=== PATIENT | male | born 1970 | race Caucasian/White ===

== ENCOUNTER 2022-06-19 12:09 | Emergency (ER) | payer SELFPAY ==
[2022-06-19] MEDS ORDERED: ACETAMINOPHEN 500 MG TAB ONE (12:47)
--- NOTE | 2022-06-19 12:54 | RAD REPORT ---
EXAM DESCRIPTION: CT - Head Brain Wo Cont - 06/19/2022 12:45 pm CLINICAL HISTORY: Headache, new or worsening COMPARISON: No comparisons TECHNIQUE: All CT scans are performed using dose optimization technique as appropriate and may inclu de automated exposure control or mA/KV adjustment according to patient size. FINDINGS: No intracranial hemorrhage, hydrocephalus or extra-axial fluid collection.No areas of brai n edema or evidence of midline shift. Anterior ethmoid air cell thickening. The calvarium is intact. IMPRESSION: No acute intracranial abnormality.
[2022-06-19 12:55] LABS: Absolute Lymphocytes (CBC) 1.5 K/uL (0.7-4.9); Hematocrit 44.6 % (39.6-49.0); Lymphocytes % 13.9 % (15.3-44.8); MCV 87.2 fL (80-100); MPV 8.3 fL (7.6-11.3); RBC Red Blood Cell Count 5.12 M/uL (4.33-5.43)
[2022-06-19 13:21] LABS: Potassium 3.6 mmol/L (3.5-5.1)
[2022-06-19] MEDS ORDERED: HYDRALAZINE HCL 20 MG/ML VIAL ONE (13:49)
--- NOTE | 2022-06-19 14:45 | EDPHYS ---
Physician Documentation [facility] Name: Kam Sultana Age: 51 yrs Sex: Male : 1970 Arrival Date: 06/19/2022 Time: 12:11 Bed 4 Private MD: ED Physician Harper Duffy HPI: 06/19 12:30 This 51 yrs old Male presents to ER via Ambulatory with complaints of High Blood sd2 Pressure. 12:30 51 yo M with no known PMH presents with CC of HTN and SHERWOOD. Pt reports BP at home sd2 initially reading 225 systolic 1 week ago on his 's BP machine and they were concerned the machine might be broken as he has never had BP issues before. They got a new machine and his BP was still reading high. He took one of his 's blood pressure medications today and yesterday with some improvement. He has had some associated SHERWOOD with no new blurred vision, CP or SOB. Endorses associated nausea due to constant head pain located frontally in the center without radiation. No photophobia or phonophobia. Rated 5/10 currently. Has not seen a physician in over 20 years.. Historical: - Allergies: 12:19 Epinephrine; ap3 - Home Meds: 12:19 None [Active]; ap3 - PMHx: 12:19 None; ap3 - Immunization history:: Client reports having NOT received the Covid vaccine. - Social history:: Smoking status: Patient reports the use of cigarette tobacco products, smokes one pack cigarettes per day. ROS: 12:30 Constitutional: Negative for fever, chills, and weight loss, Eyes: Negative for injury, sd2 pain, redness, and discharge, Cardiovascular: Negative for chest pain, palpitations, and edema, Respiratory: Negative for shortness of breath, cough, wheezing. Abdomen/GI: Negative for abdominal pain, nausea, vomiting, diarrhea. MS/Extremity: Negative for injury and deformity, Skin: Negative for injury, rash, and discoloration, Neuro: Positive for headache. Negative for numbness and tingling. Hematologic/Lymphatic: Negative for swollen nodes, abnormal bleeding, and unusual bruising. Exam: 12:30 Constitutional: This is a well developed, well nourished patient who is awake, alert, sd2 and in no acute distress. Head/Face: Normocephalic, atraumatic. Chest/axilla: Normal chest wall appearance and motion. Nontender with no deformity. Cardiovascular: Regular rate and rhythm with a normal S1 and S2. No gallops, murmurs, or rubs. 2+ distal pulses. Respiratory: Lungs have equal breath sounds bilaterally, clear to auscultation and percussion. No rales, rhonchi or wheezes noted. No increased work of breathing, no retractions or nasal flaring. Abdomen/GI: Soft, non-tender, with normal bowel sounds. No guarding or rebound. No evidence of tenderness throughout. Skin: Warm, dry with normal turgor. Normal color with no rashes, no lesions, and no evidence of cellulitis. MS/ Extremity: Pulses equal, no cyanosis. Neurovascular intact. Full, normal range of motion. Ambulatory without difficulty. Neuro: Awake and alert, GCS 15, oriented to person, place, time, and situation. Cranial nerves II-XII grossly intact. Motor strength 5/5 in all extremities. Sensory grossly intact. Cerebellar exam normal. Normal gait. Psych: Awake, alert, with orientation to person, place and time. Behavior, mood, and affect are within normal limits. Vital Signs: 12:15 BP 170 / 115; Pulse 91; Resp 19; Temp 98.2; Pulse Ox 98% ; Weight 86.18 kg; Height 5 ap3 ft. 11 in. (180.34 cm); Pain 5/10; 12:36 BP 157 / 111; Pulse 80; Resp 16; Pulse Ox 100% on R/A; jd3 13:35 BP 177 / 103; Pulse 79; Resp 16; Pulse Ox 99% on R/A; jd3 14:57 BP 156 / 96; Pulse 88; Resp 16; Pulse Ox 99% on R/A; bm7 12:15 Body Mass Index 26.50 (86.18 kg, 180.34 cm) ap3 13:35 provider notified of elevated BP jd3 MDM: 12:21 Patient medically screened. sd2 12:30 Differential diagnosis: hypertensive crisis, Malignant HTN, CVA, intracerebral sd2 hemorrhage, Tension SHERWOOD, migraine SHERWOOD, ICH, dehydration, electrolyte abnormality, MSK, meningitis among others. Data reviewed: vital signs, nurses notes. 14:39 Data reviewed: lab test result(s), radiologic studies. Counseling: I had a detailed sd2 discussion with the patient and/or guardian regarding: the historical points, exam findings, and any diagnostic results supporting the discharge/admit diagnosis, lab results, radiology results, the need for outpatient follow up, to return to the emergency department if symptoms worsen or persist or if there are any questions or concerns that arise at home. Medical screen evaluation completed. [facility] emergency medical condition absent. Medication response: Hydralazine. Response to treatment: the patient's symptoms have markedly improved after treatment. ED course: labs and imaging reviewed. Labs with no signs of end organ damage. BP improved to 161/95 at time of recheck following hydralazine. Unknown how long BP has been high so would want to lower the rest over time. Pt advised of need for close follow up with a PCP to establish care. Has been taking his 's lisinopril 20 mg which improved BP some but not significantly. Will place on combo Lisinopril-HCTZ until patient can follow up with PCP. He will keep a BP log at home as well. Verbalizes understanding of discharge plan and strict return precautions. . 06/19 12:29 Order name: CBC with Diff; Complete Time: 12:58 sd2 06/19 12:29 Order name: BMP; Complete Time: 13:35 sd2 06/19 12:29 Order name: CT Head Brain wo Cont; Complete Time: 12:58 sd2 06/19 12:41 Order name: IV Saline Lock; Complete Time: 12:41 mb7 Administered Medications: 12:56 Drug: Tylenol 1000 mg Route: PO; em6 13:50 Follow up: Response: No adverse reaction jd3 13:45 Drug: hydrALAZINE 10 mg Route: IVP; Site: right antecubital; jd3 14:45 Follow up: Response: No adverse reaction jd3 Disposition Summary: 06/19/22 14:45 Discharge Ordered Location: Home sd2 Problem: new sd2 Symptoms: have improved sd2 Condition: Stable sd2 Diagnosis - Hypertension sd2 Followup: sd2 - With: Tariq Youngblood DO - When: 2 - 3 days - Reason: Recheck today's complaints, Continuance of care, Re-evaluation by your physician Discharge Instructions: - Discharge Summary Sheet sd2 - Hypertension, Adult sd2 - Managing Your Hypertension sd2 Forms: - Medication Reconciliation Form sd2 - Thank You Letter sd2 - Antibiotic Education sd2 - Prescription Opioid Use sd2 Prescriptions: - Lisinopril-Hydrochlorothiazide 20-25 mg Oral Tablet - take 1 tablet by ORAL route once daily; 30 tablet; Refills: 0, Product sd2 Selection Permitted Signatures: Dispatcher [employer] Leonides Patel RN RN jd3 Noris Montes De Oca RN RN ap3 [place] [id number] Harper Duffy MD MD sd2 Mine Stock RN RN em6
--- NOTE | 2022-06-19 14:45 | ER ---
Nurse's Notes [facility] Name: Kam Sultana Age: 51 yrs Sex: Male : 1970 Arrival Date: 06/19/2022 Time: 12:11 Bed 4 Private MD: Diagnosis: Hypertension Presentation: 06/19 12:15 Chief complaint: Patient states: he has been having a headache and high blood pressure ap3 for a few days. patient states he took his blood pressure at home a few days ago and it was 225/??. He states he thought it was a broken machine, so they bought a new one, but the new one showed the same thing so he took one of his wifes blood pressure medications last night. This morning his blood pressure was still high, so he took another one of his wifes medicines. patient states he has never had high blood pressure before. Patient states his headache is focused at the front of his head that is a constant, and it doesn't go away. Patient rates his headache as a 5/10 on the pain scale, and is starting to develop nausea from it. Coronavirus screen: At this time, the client does not indicate any symptoms associated with coronavirus-19. Ebola Screen: No symptoms or risks identified at this time. Initial Sepsis Screen: Does the patient meet any 2 criteria? No. Patient's initial sepsis screen is negative. Does the patient have a suspected source of infection? No. Patient's initial sepsis screen is negative. Risk Assessment: Do you want to hurt yourself or someone else? Patient reports no desire to harm self or others. Onset of symptoms was June 12, 2022. 12:15 Method Of Arrival: Ambulatory ap3 12:15 Acuity: CHUY 2 ap3 Triage Assessment: 12:20 General: Appears uncomfortable, Behavior is calm, cooperative. Pain: Complains of pain ap3 in forehead Pain currently is 5 out of 10 on a pain scale. Neuro: Level of Consciousness is awake, alert, obeys commands, Oriented to person, place, time, situation, Speech is normal, Facial symmetry appears normal. Neuro: Reports headache frontal area. Cardiovascular: Patient's skin is warm and dry. Respiratory: Airway is patent Respiratory effort is even, unlabored. Historical: - Allergies: 12:19 Epinephrine; ap3 - Home Meds: 12:19 None [Active]; ap3 - PMHx: 12:19 None; ap3 - Immunization history:: Client reports having NOT received the Covid vaccine. - Social history:: Smoking status: Patient reports the use of cigarette tobacco products, smokes one pack cigarettes per day. Screenin:20 Abuse screen: Denies threats or abuse. Nutritional screening: No deficits noted. ap3 Tuberculosis screening: No symptoms or risk factors identified. 12:35 Fall Risk Ambulatory Aid- None/Bed Rest/Nurse Assist (0 pts). Gait- Normal/Bed jd3 Rest/Wheelchair (0 pts) Mental Status- Oriented to own ability (0 pts). Total Perkins Fall Scale indicates No Risk (0-24 pts). Assessment: 12:32 General: Appears in no apparent distress. comfortable, Behavior is calm, cooperative, jd3 appropriate for age. Pain: Complains of pain in head Pain currently is 2 out of 10 on a pain scale. Quality of pain is described as aching. Neuro: Silva Agitation-Sedation Scale (RASS): 0 - Alert and Calm Level of Consciousness is awake, alert, obeys commands, Oriented to person, place, time, situation, Cutter Down are equal bilaterally Moves all extremities. Full function Denies weakness blurred vision dizziness. Cardiovascular: Capillary refill < 3 seconds Patient's skin is warm and dry. Respiratory: Airway is patent Respiratory effort is even, unlabored, Respiratory pattern is regular, symmetrical, Denies cough, shortness of breath. GI: No signs and/or symptoms were reported involving the gastrointestinal system. : No signs and/or symptoms were reported regarding the genitourinary system. EENT: No signs and/or symptoms were reported regarding the EENT system. Derm: Skin is intact, Skin is dry, Skin is normal, Skin temperature is warm. Musculoskeletal: Circulation, motion, and sensation intact. Range of motion: intact in all extremities. 13:35 Reassessment: Patient appears in no apparent distress at this time. No changes from jd3 previously documented assessment. Patient and/or family updated on plan of care and expected duration. Pain level reassessed. Patient is alert, oriented x 3, equal unlabored respirations, skin warm/dry/pink. Vital Signs: 12:15 BP 170 / 115; Pulse 91; Resp 19; Temp 98.2; Pulse Ox 98% ; Weight 86.18 kg; Height 5 ap3 ft. 11 in. (180.34 cm); Pain 5/10; 12:36 BP 157 / 111; Pulse 80; Resp 16; Pulse Ox 100% on R/A; jd3 13:35 BP 177 / 103; Pulse 79; Resp 16; Pulse Ox 99% on R/A; jd3 14:57 BP 156 / 96; Pulse 88; Resp 16; Pulse Ox 99% on R/A; bm7 12:15 Body Mass Index 26.50 (86.18 kg, 180.34 cm) ap3 13:35 provider notified of elevated BP jd3 ED Course: 12:11 Patient arrived in ED. mr 12:19 Triage completed. ap3 12:21 Harper Duffy is Attending Physician. sd2 12:21 Arm band placed on right wrist. ap3 12:25 Leonides Diez, JEREMY is Primary Nurse. jd3 12:35 Patient has correct armband on for positive identification. Placed in gown. Bed in low jd3 position. Call light in reach. Side rails up X 1. Pulse ox on. NIBP on. 12:41 Inserted saline lock: 20 gauge in right antecubital area, using aseptic technique. mb7 Blood collected. 12:41 BMP Sent. mb7 12:41 CBC with Diff Sent. mb7 12:47 CT Head Brain wo Cont In Process Unspecified. EDMS 14:09 Assisted to bathroom. bm7 14:44 Tariq Youngblood DO is Referral Physician. sd2 14:57 IV discontinued, intact, bleeding controlled, No redness/swelling at site. Pressure bm7 dressing applied. 15:07 No provider procedures requiring assistance completed. jd3 Administered Medications: 12:56 Drug: Tylenol 1000 mg Route: PO; em6 13:50 Follow up: Response: No adverse reaction jd3 13:45 Drug: hydrALAZINE 10 mg Route: IVP; Site: right antecubital; jd3 14:45 Follow up: Response: No adverse reaction jd3 Medication: 12:35 VIS not applicable for this client. jd3 Outcome: 14:45 Discharge ordered by . sd2 15:07 Discharged to home ambulatory, with family. jd3 15:07 Condition: stable 15:07 Discharge instructions given to patient, Instructed on discharge instructions, follow up and referral plans. medication usage, Demonstrated understanding of instructions, follow-up care, medications, Prescriptions given X 1. 15:09 Patient left the ED. jd3 Signatures: Dispatcher [employer] [facility] DavidRadha Chary, Leonides RN RN jd3 Noris Montes De Oca RN RN ap3 Yaa Caro RN RN bm7 [place] [id number] Harper Duffy MD MD sd2 Mine Stock RN RN em6
[2022-06-19 15:17] VITALS: TEMP 98.2
[2022-06-19 15:21] VITALS: O2SAT 99
[2022-06-19 15:24] VITALS: BP 156/96
== END 2022-06-19 15:09 | disposition home or self-care (01) ==
LOC: ER 12:09
DX: I10 Essential (primary) hypertension (principal); F17.210 Nicotine dependence, cigarettes, uncomplicated; Z88.8 Allergy status to other drugs, medicaments and biological substances
CPT/HCPCS: 36415; 70450; 80048; 85025; 96374; 99284; J0360

== ENCOUNTER 2022-12-12 10:42 | Inpatient (IN) | payer SELFPAY ==
[2022-12-12 11:14] LABS: Absolute Lymphocytes (CBC) 1.6 K/uL (0.7-4.9); Hematocrit 41.8 % (39.6-49.0); Lymphocytes % 16.3 % (15.3-44.8); MCV 87.3 fL (80-100); MPV 8.3 fL (7.6-11.3); RBC Red Blood Cell Count 4.79 M/uL (4.33-5.43)
--- NOTE | 2022-12-12 11:38 | RAD REPORT ---
EXAM DESCRIPTION: US - Abdomen Exam Limited - 12/12/2022 11:21 am CLINICAL HISTORY: RUQ pain COMPARISON: No comparisons FINDINGS: The gallbladder demonstrates no gallstones. No pericholecystic fluid or gallbladder wall t hickening. The common bile duct is normal measuring 4 mm. Multiple gallbladder polyps noted. The larg est measures 11 millimeters. No definite vascular flow within the polyp. The liver demonstrates no findings of intrahepatic biliary dilatation. IMPRESSION: Negative for cholelithiasis or acute cholecystitis. No biliary ductal dilatation . Gallbladder polyp measuring 11 millimeters. Prophylactic cholecystectomy could be considered given sm all risk of malignancy. Recommend surgical referral.
[2022-12-12 11:56] LABS: Albumin 3.8 g/dL (3.4-5.0); Bilirubin Total 0.9 mg/dL (0.2-1.0); Potassium 3.2 mmol/L (3.5-5.1); Protein, Total 7.4 g/dL (6.4-8.2)
[2022-12-12 11:59] LABS: Troponin High Sensitivity 3671.2 pg/mL (<58.9)
--- NOTE | 2022-12-12 12:18 | RAD REPORT ---
EXAM DESCRIPTION: RAD - Chest Single View - 12/12/2022 12:09 pm CLINICAL HISTORY: CHEST PAIN COMPARISON: No comparisons FINDINGS: Lines: None. Lungs: No evidence of edema or pneumonia. Pleural: No significant pleural effusions or pneumothorax. Cardiac: The heart size is within normal limits. Mediastinum: Within normal limits. Bones: No acute fractures. Other: None IMPRESSION: No acute cardiopulmonary disease.
--- NOTE | 2022-12-12 12:25 | ER ---
Nurse's Notes [facility] Name: Kam Sultana Age: 52 yrs Sex: Male : 1970 Arrival Date: 12/12/2022 Time: 10:44 Bed 17 Private MD: Diagnosis: Subsequent non-ST elevation (NSTEMI) myocardial infarction;Polyps of Gallbladder Presentation: 12/12 10:58 Chief complaint: Patient states: 6 days ago I started having chest pain and jaw pain jh5 and it comes and goes and I feel like it's worse after I eat but im not sure. Coronavirus screen: Vaccine status: Patient reports receiving the 2nd dose of the covid vaccine. Client denies travel out of the [place] in the last 14 days. Ebola Screen: Patient negative for fever greater than or equal to 101.5 degrees Fahrenheit, and additional compatible Ebola Virus Disease symptoms Patient denies exposure to infectious person. Patient denies travel to an Ebola-affected area in the 21 days before illness onset. Initial Sepsis Screen: Does the patient meet any 2 criteria? No. Patient's initial sepsis screen is negative. Does the patient have a suspected source of infection? No. Patient's initial sepsis screen is negative. Risk Assessment: Do you want to hurt yourself or someone else? Patient reports no desire to harm self or others. Onset of symptoms was November 2022. 10:58 Method Of Arrival: Ambulatory [facility] 10:58 Acuity: CHUY 3 jh5 Triage Assessment: 10:59 General: Appears in no apparent distress. uncomfortable, slender, well groomed, well jh5 developed, Behavior is calm, cooperative, appropriate for age, crying. Pain: Complains of pain in chest. Historical: - Allergies: 10:59 Epinephrine; jh5 - Immunization history:: Adult Immunizations up to date. - Social history:: Smoking status: Patient reports the use of cigarette tobacco products, smokes one pack cigarettes per day. - Family history:: not pertinent. Screenin:10 [facility] ED Fall Risk Assessment (Adult) History of falling in the last 3 months, db including since admission No falls in past 3 months (0 pts) Confusion or Disorientation No (0 pts) Intoxicated or Sedated No (0 pts) Impaired Gait No (0 pts) Mobility Assist Device Used No (0 pt) Altered Elimination No (0 pt) Score/Fall Risk Level 0 - 2 = Low Risk Oriented to surroundings, Maintained a safe environment. Abuse screen: Denies threats or abuse. Denies injuries from another. Nutritional screening: No deficits noted. Tuberculosis screening: No symptoms or risk factors identified. Assessment: 10:55 Reassessment: Patient appears in no apparent distress at this time. Patient and/or db family updated on plan of care and expected duration. Pain level reassessed. Patient is alert, oriented x 3, equal unlabored respirations, skin warm/dry/pink. CHEST PAIN X 6 DAYS. DENIES CHEST PAIN AT THIS MOMENT. PATIENT TEARFUL. APPEARS ANXIOUS BUT DENIES ANXIETY. PROVIDER AT BEDSIDE DURING INITIAL ASSESSMENT. General: Appears in no apparent distress. comfortable, Behavior is cooperative, anxious. Pain: Complains of pain in chest Pain radiates to JAW Pain began 6 DAYS. Neuro: Level of Consciousness is awake, alert, obeys commands, Oriented to person, place, time, situation, Moves all extremities. Speech is normal. Cardiovascular: Reports chest pain, Capillary refill < 3 seconds. Respiratory: No deficits noted. Airway is patent Respiratory effort is even, unlabored, Respiratory pattern is regular, symmetrical. GI: No deficits noted. No signs and/or symptoms were reported involving the gastrointestinal system. Abdomen is flat, non-distended. : No deficits noted. No signs and/or symptoms were reported regarding the genitourinary system. 11:12 Reassessment: PATIENT TO ULTRASOUND. 11:30 Reassessment: Patient appears in no apparent distress at this time. Patient and/or db family updated on plan of care and expected duration. Pain level reassessed. Patient is alert, oriented x 3, equal unlabored respirations, skin warm/dry/pink. PATIENT AMBULATORY TO RESTROOM WITH STEADY GATE IN NAD. DENIES CHEST PAIN WITH WALKING. 13:03 Reassessment: Patient and/or family updated on plan of care and expected duration. Pain db level reassessed. Patient is alert, oriented x 3, equal unlabored respirations, skin warm/dry/pink. CASTING AND LOCKER ROOM SERVICER AT PATIENT BEDSIDE. 13:14 Reassessment: Patient appears in no apparent distress at this time. BAND SHOVER RN AT db BEDSIDE. SBAR PROVIDED. Vital Signs: 10:58 BP 133 / 91; Pulse 99; Resp 18; Temp 98.6; Pulse Ox 100% ; Weight 88.45 kg; Height 5 jh5 ft. 11 in. (180.34 cm); Pain 0/10; 11:00 BP 110 / 80; Pulse 80; Resp 18; Pulse Ox 100% on R/A; db 11:12 Pain 0/10; db 12:00 BP 119 / 85; Pulse 76; Resp 18; Pulse Ox 99% on R/A; db 13:00 BP 133 / 95; Pulse 85; Resp 16; Pulse Ox 100% on R/A; db 10:58 Body Mass Index 27.20 (88.45 kg, 180.34 cm) 5 Vitals: 11:12 Cardiac Rhythm Assessment Regular Sinus rhythm. db Nahed Coma Score: 11:12 Eye Response: spontaneous(4). Verbal Response: oriented(5). Motor Response: obeys db commands(6). Total: 15. ED Course: 10:44 Patient arrived in ED. mr 10:44 Frankie Deleon MD is Attending Physician. rt 10:59 Triage completed. jh5 10:59 Arm band placed on right wrist. jh5 11:03 Patient maintains SpO2 saturation greater than 95% on room air. db 11:08 Andra Arrington, RN is Primary Nurse. db 11:10 No provider procedures requiring assistance completed. Inserted saline lock: 20 gauge db in right antecubital area, using aseptic technique. Blood collected. 11:13 Patient has correct armband on for positive identification. Bed in low position. Call db light in reach. Side rails up X 1. Client placed on continuous cardiac and pulse oximetry monitoring. NIBP monitoring applied. Warm blanket given. 11:21 Abdomen Exam Limited In Process Unspecified. EDMS 11:59 Notified ED physician of a critical lab result(s). Troponin 3671.2. aa5 12:11 Chest Single View XRAY In Process Unspecified. EDMS 12:24 Tony Galloway MD is Hospitalizing Provider. rt 12:55 COVID swab sent to lab. db 13:14 Report given to SBAR GIVEN TO BAND SHOVER RN. db 13:15 Patient admitted, IV remains in place. db 13:41 Primary Nurse role handed off by Andra Arrington, JEREMY bd Administered Medications: 12:58 Drug: Aspirin 325 mg Route: PO; db 13:17 Follow up: Response: No adverse reaction db Medication: 11:31 VIS not applicable for this client. db Outcome: 12:25 Decision to Hospitalize by Provider. rt 13:14 Admitted to Wellness Specialist accompanied by nurse, accompanied by tech. db 13:14 Condition: stable 13:14 Instructed on the need for admit. 13:19 Patient left the ED. db 13:41 Patient left the ED. bd Signatures: Dispatcher [employer] EDMS Gretchen Burdick bd David Radha Mayberry, Cristiane, RN RN aa5 Vera Ray, RN RN jh5 Andra Arrington, RN RN Frankie Ya MD MD rt Corrections: (The following items were deleted from the chart) 13:15 13:00 BP 133 / 95; Pulse 85bpm; Resp 06bpm; Pulse Ox 100% RA; db db
--- NOTE | 2022-12-12 12:25 | EDPHYS ---
Physician Documentation [facility] Name: Kam Sultana Age: 52 yrs Sex: Male : 1970 Arrival Date: 12/12/2022 Time: 10:44 Bed 17 Private MD: ED Physician Frankie Deleon HPI: 12/12 10:59 This 52 yrs old Male presents to ER via Unassigned with complaints of Chest Pain. rt 10:59 The patient or guardian reports chest pain that is located primarily in the substernal rt area, epigastric area. Onset: 1 week(s) ago. Duration: The patient or guardian reports multiple episodes, that are intermittent. Modifying factors: The symptoms are alleviated by nothing. the symptoms are aggravated by eating. Severity of pain: At its worst the pain was moderate. Historical: - Allergies: 10:59 Epinephrine; jh5 - Immunization history:: Adult Immunizations up to date. - Social history:: Smoking status: Patient reports the use of cigarette tobacco products, smokes one pack cigarettes per day. - Family history:: not pertinent. ROS: 10:59 Constitutional: Negative for fever, chills, and weight loss, Eyes: Negative for injury, rt pain, redness, and discharge, ENT: Negative for injury, pain, and discharge, Neck: Negative for injury, pain, and swelling, Respiratory: Negative for shortness of breath, cough, wheezing, and pleuritic chest pain, MS/Extremity: Negative for injury and deformity, Skin: Negative for injury, rash, and discoloration, Neuro: Negative for headache, weakness, numbness, tingling, and seizure, Psych: Negative for depression, anxiety, suicide ideation, homicidal ideation, and hallucinations. 10:59 Cardiovascular: Positive for chest pain, Negative for edema. 10:59 Abdomen/GI: Positive for abdominal pain, Negative for nausea and vomiting. Exam: 10:59 Constitutional: This is a well developed, well nourished patient who is awake, alert, rt and in no acute distress. Head/Face: Normocephalic, atraumatic. Eyes: Pupils equal round and reactive to light, extra-ocular motions intact. Lids and lashes normal. Conjunctiva and sclera are non-icteric and not injected. Cornea within normal limits. Periorbital areas with no swelling, redness, or edema. ENT: Nares patent. No nasal discharge, no septal abnormalities noted. Tympanic membranes are normal and external auditory canals are clear. Oropharynx with no redness, swelling, or masses, exudates, or evidence of obstruction, uvula midline. Mucous membranes moist. Chest/axilla: Normal chest wall appearance and motion. Nontender with no deformity. No lesions are appreciated. Cardiovascular: Regular rate and rhythm with a normal S1 and S2. No gallops, murmurs, or rubs. Normal PMI, no JVD. No pulse deficits. Respiratory: Lungs have equal breath sounds bilaterally, clear to auscultation and percussion. No rales, rhonchi or wheezes noted. No increased work of breathing, no retractions or nasal flaring. Abdomen/GI: Soft, non-tender, with normal bowel sounds. No distension or tympany. No guarding or rebound. No evidence of tenderness throughout. Back: No spinal tenderness. No costovertebral tenderness. Full range of motion. Skin: Warm, dry with normal turgor. Normal color with no rashes, no lesions, and no evidence of cellulitis. MS/ Extremity: Pulses equal, no cyanosis. Neurovascular intact. Full, normal range of motion. Neuro: Awake and alert, GCS 15, oriented to person, place, time, and situation. Cranial nerves II-XII grossly intact. Motor strength 5/5 in all extremities. Sensory grossly intact. Cerebellar exam normal. Normal gait. Psych: Awake, alert, with orientation to person, place and time. Behavior, mood, and affect are within normal limits. 10:59 ECG was reviewed by the Attending Physician. Vital Signs: 10:58 BP 133 / 91; Pulse 99; Resp 18; Temp 98.6; Pulse Ox 100% ; Weight 88.45 kg; Height 5 jh5 ft. 11 in. (180.34 cm); Pain 0/10; 11:00 BP 110 / 80; Pulse 80; Resp 18; Pulse Ox 100% on R/A; db 11:12 Pain 0/10; db 12:00 BP 119 / 85; Pulse 76; Resp 18; Pulse Ox 99% on R/A; db 13:00 BP 133 / 95; Pulse 85; Resp 16; Pulse Ox 100% on R/A; db 10:58 Body Mass Index 27.20 (88.45 kg, 180.34 cm) jh5 [place] Coma Score: 11:12 Eye Response: spontaneous(4). Verbal Response: oriented(5). Motor Response: obeys db commands(6). Total: 15. MDM: 10:47 Patient medically screened. rt 13:12 Differential diagnosis: acute myocardial infarction, acute pericarditis, cholecystitis, rt Cholelithiasis pneumonia, pneumothorax, pulmonary embolus. HEART Score: History: Highly Suspicious (2), ECG: Non specific repolarization disturbance / LBTB / PM (1), Age: > 45 and < 65 years (1), Risk Factors: 1 or 2 risk factors (1), [Hypertension] [Active Smoker] Troponin: > or = 3 x Normal Limit (2), Total Score = 6. Data reviewed: vital signs, nurses notes, lab test result(s), EKG, radiologic studies. Consideration of Admission/Observation Patient was admitted/placed on observation. Management of patient was discussed with the following: Hospitalist: Will admit. Security And Compliance Analyst: Dr. Gill, kian cath pt. I considered the following discharge prescriptions or medication management in the emergency department Medications were administered in the Emergency Department. See MAR. Counseling: I had a detailed discussion with the patient and/or guardian regarding: radiology results, Informed of gallbladder polyps and instructed to follow up with surgeon per dasha leal. Response to treatment: the patient is now symptom free. 12/12 10:55 Order name: CBC with Diff; Complete Time: 12:03 rt 12/12 10:55 Order name: CMP; Complete Time: 12:03 rt 12/12 10:55 Order name: Lipase; Complete Time: 12:03 rt 12/12 10:55 Order name: Troponin High Sensitivity; Complete Time: 12:03 rt 12/12 10:55 Order name: Chest Single View XRAY; Complete Time: 12:24 rt 12/12 12:45 Order name: SARS RAPID rt 12/12 10:55 Order name: EKG; Complete Time: 10:55 rt 12/12 10:55 Order name: EKG - Nurse/Tech; Complete Time: 11:08 rt 12/12 11:09 Order name: Abdomen Exam Limited; Complete Time: 12:03 EDMS 12/12 12:22 Order name: NPO; Complete Time: 12:49 rt EC:59 Rate is 97 beats/min. Rhythm is regular, Normal Sinus Rhythm with No ectopy. IL rt interval is normal. QRS interval is normal. QT interval is normal. No Q waves. Clinical impression: NSR w/ Non-specific ST/T Changes. Interpreted by me. Administered Medications: 12:58 Drug: Aspirin 325 mg Route: PO; db 13:17 Follow up: Response: No adverse reaction db Disposition: 13:12 Critical Care:. rt Disposition Summary: 12/12/22 12:25 Hospitalization Ordered Hospitalization Status: Inpatient Admission rt Provider: Tony Galloway rt Location: Telemetry/MedSurg (Inpatient) rt Condition: Fair rt Problem: new rt Symptoms: have improved rt Bed/Room Type: Standard rt Room Assignment: 231(12/12/22 13:41) bd Diagnosis - Subsequent non-ST elevation (NSTEMI) myocardial infarction rt - Polyps of Gallbladder rt Forms: - Medication Reconciliation Form rt - SBAR form rt Critical care time excluding procedures: 13:12 Critical care time: Bedside Care: 30 minutes, Consultation: 10 minutes. Total time: 40 rt minutes Signatures: Dispatcher [employer] EDMS Gretchen Burdick Jessica, RN RN jh5 Andra Arrington RN RN db Frankie Deleon MD MD rt Corrections: (The following items were deleted from the chart) 11:09 10:55 OB Limited+US.RAD.BRZ ordered. EDRI EDMS 13:41 12:25 rt bd
[2022-12-12] MEDS ORDERED: ASPIRIN 325 MG TAB ONE (12:57)
[2022-12-12] MEDS ORDERED: NA CHLORIDE 0.9% 500 ML ONE (13:04)
[2022-12-12] MEDS ORDERED: HYDROCODONE/APAP 5/325 MG TAB PO PRN (13:20)
[2022-12-12] MEDS ORDERED: ACETAMINOPHEN 325 MG TABLET PO PRN (13:20)
[2022-12-12] MEDS ORDERED: ONDANSETRON 4 MG/2 ML VIAL IV PRN (13:24)
[2022-12-12 13:26] LABS: SARS-CoV-2 Antigen Rapid Res Negative (Negative)
[2022-12-12] MEDS ORDERED: LIDOCAINE 1% 20 ML MDV ONE (13:52)
[2022-12-12] MEDS ORDERED: HEPA 1000U/500MLS 2,000 UNIT/1,000 ML BAG IV ONE (13:52)
[2022-12-12] MEDS ORDERED: VERAPAMIL HCL 10 MG/4 ML VIAL IV ONE (13:53)
[2022-12-12] MEDS ORDERED: FENTANYL CITR 100 MCG/2 ML ONE (13:53)
[2022-12-12] MEDS ORDERED: HEPARIN 5000 UNIT/ML 1 ML VIAL ONE (13:53)
[2022-12-12] MEDS ORDERED: MIDAZOLAM HCL 2 MG/2 ML INJ ONE (13:53)
[2022-12-12] MEDS ORDERED: NITROGLYCERIN 100 MCG/ML SYR (for cath lab use only) IV ONE (13:54)
[2022-12-12] MEDS ORDERED: ATROPINE SULF 1 MG/10 ML SYR IV ONE (13:54)
[2022-12-12] MEDS ORDERED: HEPARIN 10,000 UNIT/10 ML VIAL IV ONE (13:54)
[2022-12-12] MEDS ORDERED: HEPARIN/D5W 25,000 UNIT/500 ML BAG IV PRN (14:00)
[2022-12-12 14:13] VITALS: BMI 27.1
--- NOTE | 2022-12-12 14:15 | P.HP ---
Certification for Inpatient Patient admitted to: Inpatient With expected LOS: >2 Midnights Patient will require the following post-hospital care: None Practitioner: I am a practitioner with admitting privileges, knowledge of patient current condition, hospital course, and medical plan of care. Services: Services provided to patient in accordance with Admission requirements found in Title 42 Section 412.3 of the Code of Federal Regulations <Donis Gomez - Last Filed: 12/13/22 03:09> Patient History Date of Service: 12/12/22 Reason for admission: Chest pain History of Present Illness: Patient is a 52-year-old male with a past medical history significant for nicotine dependence, hypertension who presents with complaint of substernal chest pain and epigastric area that has been ongoing intermittently for the past 1 week. Patient reports that chest pain normally last for about 40 minutes whenever he experiences it. He indicated that whenever he eats, 30 minutes later he starts to experience chest pain. Patient rated pain as 10/10 in severity and described pain as squeezing in quality. Patient indicated that chest pain radiates to his left jaw. Patient denies any other signs or symptoms. Symptoms are aggravated or relieved by nothing. Patient decided to present to the hospital for medical evaluation. - Past Medical/Surgical History -: HTN -: Nicotine dependence Past Surgical History: Reviewed- Non-Contributory - Family History Family History: Reviewed- Non-Contributory - Social History Smoking Status: Current every day smoker Counseled patient to stop smoking for: less than 10 minutes Smoking therapy provided: Yes Patient receptive to therapy: Yes Alcohol use: No CD- Drugs: No Caffeine use: Yes Place of Residence: Home <Donis Gomez - Last Filed: 12/13/22 03:09> Date of Service: 12/13/22 <Tony Galloway - Last Filed: 12/13/22 06:36> Allergies epinephrine Adverse Reaction (Intermediate, Verified 12/12/22 14:12) Nausea/Vomiting Home Medications: Losartan/Hydrochlorothiazide [Losartan-Hctz 100-25 mg Tab] 0.5 tab PO DAILY 12/12/22 Review of Systems General: Unremarkable Eyes: Unremarkable ENT: Unremarkable Respiratory: Unremarkable Cardiovascular: Chest Pain Gastrointestinal: Other (Epigastric pain ) Genitourinary: Unremarkable Musculoskeletal: Other (Jaw pain ) Integumentary: Unremarkable Neurological: Unremarkable Lymphatics: Unremarkable <Donis Gomez - Last Filed: 12/13/22 03:09> Physical Examination - Vital Signs Temperature: 98.6 F Blood Pressure: 133/95 Pulse: 85 Respirations: 16 - Physical Exam General: Alert, In no apparent distress, Oriented x3, Cooperative HEENT: Atraumatic, PERRLA, Mucous membr. moist/pink, EOMI, Sclerae nonicteric Neck: Supple, 2+ carotid pulse no bruit, No LAD, Without JVD or thyroid abnormality Respiratory: Clear to auscultation bilaterally, Normal air movement Cardiovascular: No edema, Regular rate/rhythm, Normal S1 S2, No murmurs Capillary refill: <2 Seconds Gastrointestinal: Normal bowel sounds, Tenderness Musculoskeletal: No clubbing, No swelling, No contractures, No tenderness Integumentary: No rashes, No breakdown, No significant lesion, No tenderness/swelling Neurological: Normal speech, Normal tone, Normal affect Lymphatics: No axilla or inguinal lymphadenopathy - Studies Laboratory Data (last 24 hrs) 12/12/22 11:03: Sodium 137, Potassium 3.2 L, BUN 18, Creatinine 1.14, Glucose 95, Total Bilirubin 0.9, AST 45 H, ALT 28, Alkaline Phosphatase 70, Lipase 53 L 12/12/22 11:03: WBC 9.80, Hgb 14.4, Hct 41.8, Plt Count 307 <Donis Gomez John - Last Filed: 12/13/22 03:09> - Studies Laboratory Data (last 24 hrs) 12/12/22 11:03: Sodium 137, Potassium 3.2 L, BUN 18, Creatinine 1.14, Glucose 95, Total Bilirubin 0.9, AST 45 H, ALT 28, Alkaline Phosphatase 70, Lipase 53 L 12/12/22 11:03: WBC 9.80, Hgb 14.4, Hct 41.8, Plt Count 307 <Tony Galloway - Last Filed: 12/13/22 06:36> Assessment and Plan - Plan --NSTEMI. We will continue to trend troponin. Cardiology consulted--Plans to take patient to the [facility] for left heart cath. Patient given loading dose of aspirin, Plavix, heparin in the ER. Telemetry to monitor for any malignant arrhythmia. Further management per fretted string instrument repairer. --Acute pain. We will manage pain with current pain medication regimen. --Nicotine dependence. Patient counseled on tobacco cessation. Placed on nicotine patch. --Hypertension. Blood pressure currently stable. Continue home medication when available. --Hyperlipidemia. Patient placed on statin. -- Hypokalemia. Replete as needed. -- CKD 2. Slight depreciation in kidney functions noted compared to levels 4 months ago. We will continue to monitor renal functions. --DVT prophylaxis with SCDs. Possible chemical prophylaxis after left heart cath based on fretted string instrument repairer recommendations. Discharge Plan: Home Plan to discharge in: Greater than 2 days - Advance Directives Does patient have a Living Will: No Does patient have a Durable POA for Healthcare: No - Code Status/Comfort Care Code Status Assessed: Yes Physician Review: Patient Assessed, Agree with Above Assessment and Plan Critical Care: No <Donis Gomez - Last Filed: 12/13/22 03:09> Physician Review: Patient Assessed, Agree with Above Assessment and Plan <Tony Galloway - Last Filed: 12/13/22 06:36>
[2022-12-12] MEDS ORDERED: INFLUENZA VACCINE (for 6+ mo) 0.5 ML DOSE IMVAC ONE (16:00)
[2022-12-12] MEDS ORDERED: CLOPIDOGREL 75 MG TABLET ONE (16:04)
--- NOTE | 2022-12-12 16:50 | CON ---
Date of Consultation: 12/12/2022 Reason For Consultation: Non-ST elevation myocardial infarction. History Of Present Illness: This is a 52-year-old male, no cardiac history, presented with chest emerson n on and off for the past week, became more intense and more frequent and forced him to come to the e mergency room. He has history of hypertension and active smoker about 1 pack per day. No other medi minnie history. In the emergency room, he was chest pain free, but activity brings on the pain. Past Medical History: Hypertension. Medications: Refer to reconciliation sheet for detailed list. Allergies: REVIEWED. Family History: No premature coronary artery disease or cancer. Social History: He is an active smoker, a pack per day. Does not drink, use any drugs. Review of Systems: All systems reviewed and they were negative except what mentioned in HPI. Physical Examination: Vital Signs: Reviewed. Head and Neck: Pupils are equal, reactive to light. Intact eye movements. No JVD. No cervical lym phadenopathy. Neck is supple. Thyroid is not enlarged. Lungs: Clear to auscultation bilaterally. No rhonchi, wheezing, or crackles. No accessory muscle u se. Heart: Regular rate and rhythm. No extra sounds. Abdomen: Soft, nontender. Bowel sounds positive. No organomegaly. No masses or hernia. No rigidi ty or rebound. Extremities: No edema, clubbing, or cyanosis. Intact pulses. Skin: No rash. Neurologic: Alert, awake, oriented x3. No acute focal deficits appreciated. Investigations: His creatinine is 1.14 and his troponin is in 3000 range. Assessment And Recommendations: 1.Non-ST elevation myocardial infarction. The patient will be kept n.p.o., plan for coronary angiog jamar and percutaneous coronary intervention as indicated. Start the patient on low-dose beta viviana with metoprolol 12.5 mg twice a day. The patient was loaded with aspirin. The patient was counseled , encouraged to quit smoking. 2.Hypertension. Blood pressure is elevated. Make sure the beta blockers including his medication l ist and the JOHNATHAN inhibitor due to the acute myocardial infarction and also start Lipitor 40 mg at bedt yessica. 3.Smoker. He was counseled. SR/MODL Voice ID: [id number] Report ID: [id number]
--- NOTE | 2022-12-12 17:11 | OP ---
Date of Procedure: 12/12/2022 Surgeon: LUZ ORANTES Procedures Performed: 1.Selective coronary angiogram. 2.Left heart catheterization. 3.Percutaneous coronary intervention of critical mid right coronary artery stenosis which is the cul prit for the myocardial infarction. I used 3.5 x 60 mm Synergy drug-eluting stent. Indication: Non-ST elevation myocardial infarction. Access: Right radial artery 6-Omani closed with TR band. Complications: None. Estimated Blood Loss: Bleeding less than 20 mL. Anesthesia: Total sedation time was 35 minutes, used fentanyl and Versed. Description Of Procedure: After risks, benefits, and alternatives were explained, patient agreed to the procedure and signed informed consent. Patient was brought into the cardiac catheterization [facility], prepped and draped in sterile fashion. Then I accessed the right radial artery using pediatr ic micropuncture kit, placed a 6-Omani slender sheath. Took 5-Omani Jackson 4 catheter into the aort ic root, engaged left main and right coronary artery. Took standard views. Catheter was pushed over the wire into the LV, measured the LVEDP and pullback. Did not report any gradient. Then gave syst emic heparin to assure ACT level above 250, loaded with 600 mg of Plavix. Patient received aspirin a lready in the ER and took 6-Omani JR4 guide into the aortic root, engaged the RCA, took short Run-Th rough wire through the area of stenosis and the lesion was pre-dilated using a 3.0 x 8 compliant ball oon to high pressure and then I placed 3.5 x 60 mm Synergy drug-eluting stent across the area of sten osis with excellent apposition and good expansion. Then, removed the wire and the final angiogram wa s satisfactory and I then removed the guide and sheath and placed TR band with good hemostasis. Findings: 1.Left main, moderate size and normal. 2.LAD: Moderate-size vessel with luminal irregularities. In the proximal segment, in the mid segme nt, multiple areas of 20% to 30% stenosis and then luminal irregularities and diagonal branches are s mall with no significant disease. 3.Left circumflex, moderate size with luminal irregularities throughout. 4.RCA is large and dominant. Proximal 30% stenosis and mid 99% stenosis, status post successful PCI as above and distally there were tandem 2 or 3 lesions ranging between 20% to 30% and luminal irregu larities in the PDA and PLB. 5.Elevated LVEDP at 23 mmHg. Conclusion: 1.Critical mid RCA stenosis, status post successful PCI as above. 2.Mild coronary artery disease elsewhere. 3.Elevated LVEDP. Recommendation: Aspirin, Plavix, statin, and diuretics. SR/MODL Voice ID: [id number] Report ID: [id number]
[2022-12-12 18:16] LABS: Magnesium 2.3 mg/dL (1.6-2.4); Phosphorus 3.1 mg/dL (2.5-4.9); Thyroid Stimulating Hormone 0.424 uIU/mL (0.358-3.740)
[2022-12-12] MEDS ORDERED: ATORVASTATIN 40 MG TAB PO SCH (21:00)
[2022-12-12] MEDS: NICOTINE 21 MG/PAT TD SCH (21:17)
[2022-12-12] MEDS: METOPROLOL TAR 25 MG TAB PO SCH (21:17)
[2022-12-13] MEDS ORDERED: SODIUM CHLORIDE 0.9% 10ML INJ IV PRN (03:10)
[2022-12-13 06:11] LABS: Absolute Lymphocytes (CBC) 2.7 K/uL (0.7-4.9); Hematocrit 37.1 % (39.6-49.0); MCV 87.1 fL (80-100); MPV 8.3 fL (7.6-11.3); RBC Red Blood Cell Count 4.27 M/uL (4.33-5.43)
[2022-12-13] MEDS: METOPROLOL TAR 25 MG TAB PO SCH (06:24)
[2022-12-13 06:37] LABS: Potassium 3.1 mmol/L (3.5-5.1)
[2022-12-13 07:04] LABS: Urine Bacteria None Seen /HPF (<20); Urine RBC <5 /HPF (None Seen)
[2022-12-13 07:25] LABS: Urine Bilirubin NEGATIVE (Negative); Urine Blood Negative (Negative); Urine Clarity Clear (Clear); Urine Color Yellow (Yellow); Urine Glucose NEGATIVE (Negative); Urine Protein TRACE (Negative); Urine Urobilinogen 1+ (Normal); Urine pH 6.5 (5.0-7.0)
[2022-12-13 07:26] LABS: Specific Gravity > 1.030 (1.005-1.030)
--- NOTE | 2022-12-13 07:38 | EKG ---
Test Date: 2022-12-12 Test Time: 10:54:12 Despatching And Receiving Clerk: EMILY MEASUREMENT RESULTS: Intervals: Rate: 97 CA: 142 QRSD: 98 QT: 370 QTc: 469 [place]: P: 56 CA: 142 QRS: 54 T: 65 INTERPRETIVE STATEMENTS: Normal sinus rhythm Possible Left atrial enlargement Cannot rule out Inferior infarct, age undetermined Abnormal ECG No previous ECG available for comparison Electronically Signed On 12-13-22 07:36:06 BREAKDOWN WORKER by Jass Pleitez
[2022-12-13] MEDS: NICOTINE 21 MG/PAT TD SCH (08:11)
--- NOTE | 2022-12-13 08:15 | P.DS ---
Admission Date: 12/12/22 Discharge Date: 12/13/22 Disposition: ROUTINE DISCHARGE Discharge Condition: GOOD Reason for Admission: Chest pain Consultations: 1. Cardiology 2. General Surgery Procedures: Procedures Performed by Dr. Gill (12/12/2022): "1. Selective coronary angiogram. 2. Left heart catheterization. 3. Percutaneous coronary intervention of critical mid right coronary artery stenosis which is the culprit for the myocardial infarction. I used 3.5 x 60 mm Synergy drug-eluting stent." Hospital Course: DIAGNOSES: # Non-ST Segment Elevation Myocardial Infarction # Hypertension # Dyslipidemia # Tobacco Use Disorder HOSPITAL COURSE: Mr. Kam Sultana is a pleasant 52 year old male with a past medical history significant for hypertension, dyslipidemia, and tobacco use disorder who was admitted to the [facility] on 12/12/2022 for chest pain. He was admitted to the Medicine service. His EKG was without STEMI criteria. His troponin trend was 3671.2 -> 66307.1 -> 91320.7. Cardiology was consulted and he was evaluated by Dr. Gill. He underwent a cardiac catheterization and had a dr ug-eluting stent placed in the right coronary artery. He tolerated the procedure well and did well overnight. He is currently chest pain free and would like to be discharged home. Dr. Gill has cleared him for discharge today with aspirin, atorvastatin, metoprolol, losartan, and clopidogrel. He was also counseled on the importance of tobacco cessation. Of note, a right upper quadrant ultrasound was obtained and revealed, "negative for cholelithiasis or acute cholecystitis. No biliary ductal dilatation. Gallbladder polyp measuring 11 millimeters. Prophylactic cholecystectomy could be considered given small risk of malignancy. Recommend surgical referral." General Surgery was consulted and I spoke with Dr. Perry. He recommended outpatient follow-up given that he is in the hospital for a different reason. I discussed this finding with Mr. Sultana and his and that it carries a risk of malignancy. They both verbalized understanding and he agreed to schedule a follow-up appointment with Dr. Perry. On 12/13/2022, he was seen on morning rounds and deemed medically stable for discharge. He was discharged with instructions to schedule follow-up appointments with his PCP (Dr. Odonnell), with Cardiology (Dr. Gill), and with General Surgery (Dr. Perry). He was provided prescriptions for atorvastatin, losartan, metoprolol, and clopidogrel. He and his were given the oppo rtunity to ask questions and reported no further questions. Furthermore, all questions were answered to the best of my ability. A copy of this discharge summary will be sent to the above providers to facilitate continuity of care. Today, I personally spent 20 minutes on his case, of which greater than 50% of the time was spent in patient education, counseling, and coordination of care as described above. Vital Signs/Physical Exam: Temp Pulse Resp BP Pulse Ox 97.8 F 85 18 133/95 H 98 12/13/22 04:00 12/13/22 06:24 12/13/22 04:00 12/13/22 06:24 12/13/22 04:00 General: Alert, In no apparent distress, Oriented x3 HEENT: Atraumatic, Mucous membr. moist/pink, EOMI, Sclerae nonicteric Neck: JVD not distended Respiratory: Clear to auscultation bilaterally, Normal air movement Cardiovascular: No edema, Regular rate/rhythm, Normal S1 S2, No gallops, No rubs, No murmurs Gastrointestinal: Normal bowel sounds, Soft and benign, Non-distended, No tenderness, No rebound, No guarding Musculoskeletal: No clubbing, Other (right wrist catheterization site is clean, dry, intact, without evidence of hematoma) Integumentary: No rashes Neurological: Normal speech, Normal affect Laboratory Data at Discharge: WBC 9.90 K/uL (4.3-10.9) 12/13/22 05:55 Hgb 13.1 g/dL (13.6-17.9) L D 12/13/22 05:55 Hct 37.1 % (39.6-49.0) L 12/13/22 05:55 Plt Count 264 K/uL (152-406) 12/13/22 05:55 Sodium 138 mmol/L (136-145) 12/13/22 05:55 Potassium 3.1 mmol/L (3.5-5.1) L 12/13/22 05:55 BUN 16 mg/dL (7-18) 12/13/22 05:55 Creatinine 0.99 mg/dL (0.70-1.30) 12/13/22 05:55 Glucose 103 mg/dL (74-106) 12/13/22 05:55 Phosphorus 3.1 mg/dL (2.5-4.9) 12/12/22 17:28 Magnesium 2.3 mg/dL (1.6-2.4) 12/12/22 17:28 Total Bilirubin 0.9 mg/dL (0.2-1.0) 12/12/22 11:03 AST 45 U/L (15-37) H 12/12/22 11:03 ALT 28 U/L (16-61) 12/12/22 11:03 Alkaline Phosphatase 70 U/L (45-117) 12/12/22 11:03 Triglycerides 66 mg/dL (<150) 12/12/22 17:28 Cholesterol 207 mg/dL (<200) H 12/12/22 17:28 HDL Cholesterol 35 mg/dL (40-60) L 12/12/22 17:28 Cholesterol/HDL Ratio 5.91 12/12/22 17:28 Lipase 53 U/L (73-393) L 12/12/22 11:03 Home Medications: RX: Aspirin Chewable [Aspirin Chewable*] 81 mg PO DAILY tab.chew 12/13/22 RX: Atorvastatin Calcium [Lipitor] 40 mg PO BEDTIME #30 tab 12/13/22 RX: Clopidogrel Bisulfate [Plavix*] 75 mg PO DAILY #30 tab 12/13/22 RX: Losartan Potassium 25 mg PO DAILY #30 tab 12/13/22 RX: Metoprolol Tartrate [Lopressor*] 12.5 mg PO BID 6AM 6PM #30 tab 12/13/22 RX: Nicotine [Nicoderm*] 21 mg TD DAILY 12/13/22 New Medications: RX: Atorvastatin Calcium [Lipitor] 40 mg PO BEDTIME #30 tab RX: Metoprolol Tartrate [Lopressor*] 12.5 mg PO BID 6AM 6PM #30 tab RX: Losartan Potassium 25 mg PO DAILY #30 tab RX: Clopidogrel Bisulfate [Plavix*] 75 mg PO DAILY #30 tab Physician Discharge Instructions: 1. Please call and schedule a follow-up appointment with your PCP (Dr. Odonnell) in 3-5 days 2. Please call and schedule a follow-up appointment with Cardiology (Dr. Gill) in 5-7 days - Please ask him to refill your medication prescriptions at this appointment 3. Please call and schedule a General Surgery consultation with Dr. Perry in 1-2 weeks - Please discuss the risks and benefits of a gallbladder removal surgery Diet: AHA Activity: Ad rebecca Followup: Ryan Perry MD [ACTIVE - CAN ADMIT] - (surgeon) Luis Angel Odonnell MD [Primary Care Provider] - James Gill MD [ACTIVE - CAN ADMIT] - (director of market intelligence )
[2022-12-13 08:26] VITALS: BP 105/69; TEMP 99.2
[2022-12-13 08:36] VITALS: O2SAT 97
[2022-12-13] MEDS ORDERED: CLOPIDOGREL 75 MG TABLET PO SCH ×2 (09:00)
[2022-12-13] MEDS ORDERED: PANTOPRAZOLE 40 MG INJ IVP SCH (09:00)
[2022-12-13] MEDS ORDERED: LOSARTAN/HCTZ 50-12.5 PO SCH (09:00)
[2022-12-13] MEDS ORDERED: LOSARTAN POTASSIUM 50 MG TABLET PO SCH (09:00)
[2022-12-13] MEDS ORDERED: POTASSIUM CL SA 10 MEQ TAB PO ONE (09:00)
[2022-12-13] MEDS ORDERED: HOME MED 1 EA UNK (Losartan/Hydrochlorothiazide [Losartan-Hctz 100-25 Mg Tab] 1 EACH Table PO SCH (09:00)
[2022-12-13] MEDS ORDERED: ASPIRIN 81 MG CHEWABLE TABLET PO SCH (09:00)
== END 2022-12-13 08:55 | disposition home or self-care (01) | DRG 247 ==
LOC: ER 10:42 → ERHOLD 13:17 → 2ND 13:42
PROVIDERS: ADMIT Internal Medicine; ATTEND Internal Medicine
PROC: 027034Z Dilation of Coronary Artery, One Artery with Drug-eluting Intraluminal Device, Percutaneous Approach (ICD-10-PCS; principal; 2022-12-12)
PROC: 4A023N7 Measurement of Cardiac Sampling and Pressure, Left Heart, Percutaneous Approach (ICD-10-PCS; 2022-12-12)
PROC: B2111ZZ Fluoroscopy of Multiple Coronary Arteries using Low Osmolar Contrast (ICD-10-PCS; 2022-12-12)
DX: I21.4 Non-ST elevation (NSTEMI) myocardial infarction (principal); K82.4 Cholesterolosis of gallbladder; E78.5 Hyperlipidemia, unspecified; E87.6 Hypokalemia; I12.9 Hypertensive chronic kidney disease with stage 1 through stage 4 chronic kidney disease, or unspecified chronic kidney disease; N18.2 Chronic kidney disease, stage 2 (mild); F17.210 Nicotine dependence, cigarettes, uncomplicated; Z88.8 Allergy status to other drugs, medicaments and biological substances; Z79.82 Long term (current) use of aspirin; Z79.02 Long term (current) use of antithrombotics/antiplatelets; Z79.899 Other long term (current) drug therapy; Z20.822 Contact with and (suspected) exposure to COVID-19
CPT/HCPCS: 36415; 71045; 76705; 76937; 80048; 80053; 80061; 81001; 82550; 83036; 83690; 83735; 84100; 84439; 84443; 84484; 85025; 85347; 87811; 92928; 93005; 93458; 99285; C1725; C1887; C1893; C9113; J0461; J1644; J2001; J2250; J2370; J3010; J7040; J7060

== ENCOUNTER 2023-10-06 16:41 | Emergency (ER) | payer SELFPAY ==
--- NOTE | 2023-10-06 17:37 | ER ---
Nurse's Notes [facility] Name: Kam Sultana Age: 53 yrs Sex: Male : 1970 Arrival Date: 10/06/2023 Time: 16:41 Bed 18 Private MD: Diagnosis: Bullous impetigo;Cellulitis of right upper limb Presentation: 10/06 17:26 Chief complaint: Patient states: started with what they thought was ring worm on his iw right hand, it festered up and started oozing , thought it was impetigo, Dr. Odonnell prescribed cephalexin 3-4 days ago, not getting better , called in a new prescription but has not started it yet. Coronavirus screen: At this time, the client does not indicate any symptoms associated with coronavirus-19. Ebola Screen: Patient negative for fever greater than or equal to 101.5 degrees Fahrenheit, and additional compatible Ebola Virus Disease symptoms Patient denies exposure to infectious person. Patient denies travel to an Ebola-affected area in the 21 days before illness onset. No symptoms or risks identified at this time. Initial Sepsis Screen: Does the patient meet any 2 criteria? No. Patient's initial sepsis screen is negative. Does the patient have a suspected source of infection? No. Patient's initial sepsis screen is negative. Risk Assessment: Do you want to hurt yourself or someone else? Patient reports no desire to harm self or others. Onset of symptoms was September 20, 2023. 17:26 Method Of Arrival: Ambulatory iw 17:26 Acuity: CHUY 3 iw Historical: - Allergies: 17:28 Epinephrine; iw - Home Meds: 17:28 Aspirin Oral [Active]; losartan 25 mg oral tablet daily [Active]; atorvastatin 40 mg iw oral tablet every day at bedtime [Active]; metoprolol tartrate 25 mg Oral tablet 2 times per day [Active]; clopidogrel 75 mg oral tablet daily [Active]; - PMHx: 17:28 Hypertensive disorder; Hypercholesterolemia; iw - PSHx: 17:28 cardiac stent; iw - Immunization history:: Adult Immunizations not up to date. - Social history:: Smoking status: Reported history of juuling and/or vaping. Screenin:59 [facility] ED Fall Risk Assessment (Adult) Score/Fall Risk Level 0 - 2 = Low Risk ll1 Oriented to surroundings, Maintained a safe environment, Educated pt \T\ family on fall prevention, incl call for assistance when getting out of bed, Hourly rounding (assess needs \T\ fall precautionary measures) done. Abuse screen: Denies threats or abuse. Nutritional screening: No deficits noted. Tuberculosis screening: No symptoms or risk factors identified. Assessment: 17:58 General: Appears uncomfortable, Behavior is calm, cooperative, appropriate for age. ll1 Pain: Complains of pain in right hand Quality of pain is described as burning, aching. Derm: Reports rash/cellulitis to R hand, drains light yellow pus-like liquid. 18:04 Reassessment: No changes from previously documented assessment. Patient and/or family ll1 updated on plan of care and expected duration. Pain level reassessed. Patient is alert, oriented x 3, equal unlabored respirations, skin warm/dry/pink. Vital Signs: 17:26 BP 170 / 109; Pulse 98; Resp 16; Temp 98.4; Pulse Ox 99% on R/A; Weight 90.72 kg; iw Height 6 ft. 0 in. ; 17:57 BP 168 / 102; Pulse 82; Resp 17; Pulse Ox 99% ; ll1 17:26 Body Mass Index 27.12 (90.72 kg, 182.88 cm) iw ED Course: 16:41 Patient arrived in ED. mg5 16:45 Soila Tripp PA-C is PHCP. sb4 16:45 Irma Youngblood MD is Attending Physician. sb4 17:15 Sarah Luque, JEREMY is Primary Nurse. ll1 17:15 Arm band placed on Patient placed in an exam room, on a stretcher. ll1 17:28 Triage completed. iw 17:57 Wound Culture Sent. ll1 17:59 Patient has correct armband on for positive identification. Bed in low position. Call ll1 light in reach. Side rails up X 1. Cardiac monitoring not applicable on this patient. 17:59 No provider procedures requiring assistance completed. Patient did not have IV access ll1 during this emergency room visit. 18:04 Provided Education on: n/a. ll1 Administered Medications: 17:50 Drug: Triamcinolone Acetonide IM 40 mg IM once Route: IM; Site: left gluteus; ll1 18:42 Follow up: Response: No adverse reaction ll1 17:57 Drug: Trimethoprim-Sulfamethoxazole PO (160 mg-800 mg (DS) 1 tablet PO once Route: PO; ll1 18:42 Follow up: Response: No adverse reaction ll1 Medication: 18:04 VIS not applicable for this client. ll1 Outcome: 17:36 Discharge ordered by MD. julian 18:04 Patient left the ED. ll1 18:04 Discharged to home ambulatory, ll1 18:04 Condition: stable 18:04 Discharge instructions given to patient, Instructed on discharge instructions, follow up and referral plans. medication usage, wound care, Demonstrated understanding of instructions, follow-up care, medications, wound care, Prescriptions given X 2, Signatures: Lenore Hart RN RN iw Sarah Luque RN RN ll1 Soila Tripp PA-C PARoel [email or web address] Brianna Sharma mg5
--- NOTE | 2023-10-06 17:37 | EDPHYS ---
Physician Documentation [facility] Name: Kam Sultana Age: 53 yrs Sex: Male : 1970 Arrival Date: 10/06/2023 Time: 16:41 Bed 18 Private MD: ED Physician Irma Youngblood HPI: 10/06 17:46 This 53 yrs old Male presents to ER via Ambulatory with complaints of Rash - Infection sb4 On Hand. 17:46 patient states he noticed a rash on his right hand about 3 weeks ago. 1 week ago, he sb4 saw his PCP who diagnosed him with impetigo and started him on keflex. he states he has been taking the medication as prescribed but the rash has worsened and spread up his arm. he also states that he has psoriasis and it is flaring up, especially on his face. he denies any pain or itching to the area, but does report inconvenience as it is weeping and on his right hand. no fevers. Historical: - Allergies: 17:28 Epinephrine; iw - Home Meds: 17:28 Aspirin Oral [Active]; losartan 25 mg oral tablet daily [Active]; atorvastatin 40 mg iw oral tablet every day at bedtime [Active]; metoprolol tartrate 25 mg Oral tablet 2 times per day [Active]; clopidogrel 75 mg oral tablet daily [Active]; - PMHx: 17:28 Hypertensive disorder; Hypercholesterolemia; iw - PSHx: 17:28 cardiac stent; iw - Immunization history:: Adult Immunizations not up to date. - Social history:: Smoking status: Reported history of juuling and/or vaping. ROS: 17:46 Constitutional: Negative for fever, chills, and weight loss, sb4 17:46 Skin: Positive for rash, of the right hand, right arm and left arm, 17:46 All other systems are negative, Exam: 17:46 Constitutional: This is a well developed, well nourished patient who is awake, alert, sb4 and in no acute distress. Head/Face: Normocephalic, atraumatic. Eyes: Extra-ocular motions intact. Periorbital areas with no swelling, redness, or edema. ENT: Mucous membranes moist. MS/ Extremity: Pulses equal, no cyanosis. Neurovascular intact. Full, normal range of motion. Neuro: Awake and alert, GCS 15, oriented to person, place, time, and situation. Motor strength 5/5 in all extremities. Sensory grossly intact. 17:46 Skin: right hand, dorsal aspect, several small bullous lesions with yellow drainage and surrounding cellulitis. small sporadic erythematous lesions diffusely located on right arm and left arm. Vital Signs: 17:26 BP 170 / 109; Pulse 98; Resp 16; Temp 98.4; Pulse Ox 99% on R/A; Weight 90.72 kg; iw Height 6 ft. 0 in. ; 17:57 BP 168 / 102; Pulse 82; Resp 17; Pulse Ox 99% ; ll1 17:26 Body Mass Index 27.12 (90.72 kg, 182.88 cm) iw MDM: 17:02 Patient medically screened. sb4 17:46 Differential diagnosis: impetigo, varicella, allergic reaction. Data reviewed: vital sb4 signs, nurses notes, and as a result, I will discharge patient. Care significantly affected by the following chronic conditions: Hypertension. Counseling: I had a detailed discussion with the patient and/or guardian regarding the historical points, exam findings, and any diagnostic results supporting the discharge/admit diagnosis, to return to the emergency department if symptoms worsen or persist or if there are any questions or concerns that arise at home. 10/06 17:32 Order name: Wound Culture sb4 10/06 17:32 Order name: Wound dressing: wet to dry, cover with anne; Complete Time: 17:57 sb4 Administered Medications: 17:50 Drug: Triamcinolone Acetonide IM 40 mg IM once Route: IM; Site: left gluteus; ll1 18:42 Follow up: Response: No adverse reaction ll1 17:57 Drug: Trimethoprim-Sulfamethoxazole PO (160 mg-800 mg (DS) 1 tablet PO once Route: PO; ll1 18:42 Follow up: Response: No adverse reaction ll1 Disposition Summary: 10/06/23 17:36 Discharge Ordered Notes: Location: Home sb4 Problem: an ongoing problem sb4 Symptoms: are unchanged sb4 Condition: Stable sb4 Diagnosis - Bullous impetigo sb4 - Cellulitis of right upper limb sb4 Followup: sb4 - With: Emergency Department - When: As needed - Reason: Trouble breathing, Worsening of condition Discharge Instructions: - Discharge Summary Sheet sb4 - Cellulitis, Adult, [id number] sb4 - Impetigo, Adult sb4 Forms: - Medication Reconciliation Form sb4 - Thank You Letter sb4 - Antibiotic Education sb4 - Prescription Opioid Use sb4 - Patient Portal Instructions sb4 - Leadership Thank You Letter sb4 Prescriptions: - Medrol ([place]) 4 mg Oral Tablets, Dose Pack - take 1 tablet ORAL route as directed - follow package instructions; 1 packet; sb4 Refills: 0, Product Selection Permitted - Bactrim DS 800-160 mg Oral Tablet - take 1 tablet ORAL route every 12 hours for 10 days; 20 tablet; Refills: 0, sb4 Product Selection Permitted Signatures: Dispatcher [employer] Lenore Enriquez RN RN iw Lewis, Lynsay, RN RN ll1 Soila Tripp PA-C PA-C sb4
[2023-10-06] MEDS ORDERED: TRIAMCINOLONE ACETON 40 MG/ML VIAL ONE (17:55)
[2023-10-06] MEDS ORDERED: SMZ./TMP. 800/160 MG TABLET ONE (17:55)
[2023-10-06 18:09] VITALS: TEMP 98.4; O2SAT 99
[2023-10-06 18:10] VITALS: BP 168/102
== END 2023-10-06 18:04 | disposition home or self-care (01) ==
LOC: ER 16:41
DX: L01.03 Bullous impetigo (principal); L03.113 Cellulitis of right upper limb
CPT/HCPCS: 87070; 87205; 96372; 99284; J3301

== ENCOUNTER 2023-10-18 15:09 | Emergency (ER) | payer SELFPAY ==
[2023-10-18] MEDS ORDERED: METHYLPREDNISOLONE 125 MG INJ ONE (16:06)
[2023-10-18] MEDS ORDERED: CEFTRIAXONE 2000 MG/VIAL ONE (16:06)
[2023-10-18 16:22] LABS: Absolute Lymphocytes (CBC) 1.9 K/uL (0.7-4.9); Hematocrit 42.8 % (39.6-49.0); Lymphocytes % 18.6 % (15.3-44.8); MCV 87.9 fL (80-100); MPV 8.1 fL (7.6-11.3); Platelets 281 thou/uL (152-406); RBC Red Blood Cell Count 4.87 M/uL (4.33-5.43)
[2023-10-18 16:43] LABS: Albumin 3.6 g/dL (3.4-5.0); Bilirubin Total 0.4 mg/dL (0.2-1.0); Protein, Total 6.9 g/dL (6.4-8.2)
[2023-10-18 17:00] LABS: Protime INR 0.95
--- NOTE | 2023-10-18 18:06 | EDPHYS ---
Physician Documentation [facility] Name: Kam Sultana Age: 53 yrs Sex: Male : 1970 Arrival Date: 10/18/2023 Time: 15:09 Bed 10 Private MD: ED Physician Frankie Deleon HPI: 10/18 20:38 This 53 yrs old Male presents to ER via Ambulatory with complaints of Rash. rt 20:38 Patient presents to the ED with a rash. Patient was recently treated for both impetigo rt with steroids, Bactrim. He states that the wounds have dried up, significantly improved, but, he noted that he felt somewhat worsening today including growing in size. Reports an itching but denies any pain, fever. Denies other acute complaints, symptoms are moderate in severity, no other aggravating or alleviating factors. Historical: - Allergies: 15:25 Epinephrine; hb - PMHx: 15:25 Hypercholesterolemia; Hypertensive disorder; hb - PSHx: 15:25 cardiac stent; hb - Immunization history:: Adult Immunizations up to date. - Social history:: Smoking status: Patient denies any tobacco usage or history of. - Family history:: not pertinent. ROS: 20:38 Constitutional: Negative for fever, chills, and weight loss, Cardiovascular: Negative rt for chest pain, palpitations, and edema, Respiratory: Negative for shortness of breath, cough, wheezing, and pleuritic chest pain, Abdomen/GI: Negative for abdominal pain, nausea, vomiting, diarrhea, and constipation, Neuro: Negative for headache, weakness, numbness, tingling, and seizure, Psych: Negative for depression, anxiety, suicide ideation, homicidal ideation, and hallucinations, 20:38 Skin: Positive for Itching, rash, Exam: 20:38 Constitutional: This is a well developed, well nourished patient who is awake, alert, rt and in no acute distress. Head/Face: Normocephalic, atraumatic. Chest/axilla: Normal chest wall appearance and motion. Nontender with no deformity. No lesions are appreciated. Cardiovascular: Regular rate and rhythm with a normal S1 and S2. No gallops, murmurs, or rubs. Normal PMI, no JVD. No pulse deficits. Respiratory: Lungs have equal breath sounds bilaterally, clear to auscultation and percussion. No rales, rhonchi or wheezes noted. No increased work of breathing, no retractions or nasal flaring. Abdomen/GI: Soft, non-tender, with normal bowel sounds. No distension or tympany. No guarding or rebound. No evidence of tenderness throughout. 20:38 Skin: Dermatitis noted to the right arm, small mount of the left arm as well as to the back. There is a crusting, more red area at the dorsum of the right hand, the rest of the rash does not overtly appear to be cellulitic, no tenderness, is only mildly discolored. Does appear to be dry.. 20:38 ECG was reviewed by the Attending Physician. rt Vital Signs: 15:26 BP 151 / 98; Pulse 89; Resp 16; Temp 98.2; Pulse Ox 100% on R/A; Weight 90.72 kg; hb Height 6 ft. 0 in. ; Pain 1/10; 17:12 BP 147 / 97; Pulse 68; Resp 16; Pulse Ox 99% on R/A; Pain 0/10; tl4 18:21 BP 141 / 95; Pulse 69; Resp 15; Pulse Ox 97% on R/A; Pain 0/10; tl4 15:26 Body Mass Index 27.12 (90.72 kg, 182.88 cm) hb 15:26 Pain Scale: Adult hb 17:12 Pain Scale: Adult tl4 18:21 Pain Scale: Adult tl4 MDM: 15:33 Patient medically screened. rt 20:38 Differential diagnosis: Impetigo , cellulitis, dermatitis, psoriasis. Data reviewed: rt vital signs, nurses notes, lab test result(s). Consideration of Admission/Observation Escalation of care including admission/observation considered. The skin does not overtly appear to be infected, will treat with Keflex for better streptococcal coverage should this represent an infectious etiology, suspect more inflammatory, dermatitis as the etiology. Patient did get a dose steroids, does state that he is starting to notice some improvement. Skin is more itchy rather than painful. I did offer the patient admission for further care, he states that he is okay with going home, will follow-up as an outpatient. Patient will monitor his symptoms closely and return for worsening condition.. Care significantly affected by the following chronic conditions: Psoriasis. Counseling: I had a detailed discussion with the patient and/or guardian regarding the historical points, exam findings, and any diagnostic results supporting the discharge/admit diagnosis, lab results, the need for outpatient follow up, to return to the emergency department if symptoms worsen or persist or if there are any questions or concerns that arise at home. 10/18 15:34 Order name: Blood Culture Adult (2) rt 10/18 15:34 Order name: CBC with Diff; Complete Time: 17:07 rt 10/18 15:34 Order name: CMP; Complete Time: 17:07 rt 10/18 15:34 Order name: Lactate w/ 2H reflex if indic.; Complete Time: 17:07 rt 10/18 15:34 Order name: Protime (+inr); Complete Time: 17:07 rt 10/18 15:34 Order name: Ptt, Activated; Complete Time: 17:07 rt 10/18 15:34 Order name: EKG; Complete Time: 15:35 rt 10/18 15:34 Order name: Accucheck; Complete Time: 16:47 rt 10/18 15:34 Order name: Cardiac monitoring; Complete Time: 16:11 rt 10/18 15:34 Order name: EKG - Nurse/Tech; Complete Time: 16:40 rt 10/18 15:34 Order name: IV Saline Lock - Large Bore; Complete Time: 16:11 rt 10/18 15:34 Order name: Labs collected and sent; Complete Time: 16:11 rt 10/18 15:34 Order name: O2 Per Protocol; Complete Time: 16:11 rt 10/18 15:34 Order name: O2 Sat Monitoring; Complete Time: 16:11 rt 10/18 15:34 Order name: Vital Signs; Complete Time: 16:12 rt EC:38 Rate is 64 beats/min. Rhythm is regular, Normal Sinus Rhythm with No ectopy. QRS [place] rt is Normal. [place] interval is normal. QRS interval is normal. QT interval is normal. No Q waves. T waves are Normal. No ST changes noted. Administered Medications: 16:10 Drug: MethylPrednisoLONE IVP 125 mg IVP once Route: IVP; Site: left antecubital; tl4 16:47 Follow up: Response: No adverse reaction tl4 16:15 Drug: Rocephin IV 2 grams IV at calculated rate once; Given slow IV push per [id number] tl4 instructions Route: IV; Rate: calculated rate; Infused Over: 15 mins; Site: left antecubital; 16:20 Follow up: Response: No adverse reaction; IV Status: Completed infusion tl4 Disposition Summary: 10/18/23 18:06 Discharge Ordered Notes: Location: Home rt Problem: an ongoing problem rt Symptoms: have improved rt Condition: Stable rt Diagnosis - Dermatitis, unspecified rt Followup: rt - With: Private Physician - When: 5 - 6 days - Reason: Discharge Instructions: - Discharge Summary Sheet rt - Atopic Dermatitis rt Forms: - Medication Reconciliation Form rt - Thank You Letter rt - Antibiotic Education rt - Prescription Opioid Use rt - Patient Portal Instructions rt - Leadership Thank You Letter rt Prescriptions: - Cephalexin 500 mg Oral Capsule - take 1 capsule ORAL route every 8 hours for 10 days; 30 capsule; Refills: 0, rt Product Selection Permitted - Hydroxyzine HCl 25 mg Oral Tablet - take 1 tablet ORAL route every 6 hours As needed; 30 tablet; Refills: 0, rt Product Selection Permitted - Prednisone 20 mg Oral Tablet - take 2 tablets ORAL route once daily for 5 days; 10 tablet; Refills: 0, Product rt Selection Permitted Signatures: Dispatcher [employer] Kelly Saravia RN RN Frankie Ricketts MD MD rt Logdaabdirizak, Wilberto tl4
--- NOTE | 2023-10-18 18:06 | ER ---
Nurse's Notes [facility] Name: Kam Sultana Age: 53 yrs Sex: Male : 1970 Arrival Date: 10/18/2023 Time: 15:09 Bed 10 Private MD: Diagnosis: Dermatitis, unspecified Presentation: 10/18 15:23 Chief complaint: Painful, itchy rash on torso and arms x 1 month. Seen in ED on 10/06, hb completed steroids and antibiotics, reports rash worse over last 2 days. 15:25 Method Of Arrival: Ambulatory hb 15:26 Coronavirus screen: At this time, the client does not indicate any symptoms associated hb with coronavirus-19. Ebola Screen: No symptoms or risks identified at this time. Initial Sepsis Screen: Does the patient meet any 2 criteria? No. Patient's initial sepsis screen is negative. Does the patient have a suspected source of infection? No. Patient's initial sepsis screen is negative. Risk Assessment: Do you want to hurt yourself or someone else? Patient reports no desire to harm self or others. Onset of symptoms was August 2023. 16:15 Acuity: CHUY 3 iw Triage Assessment: 16:43 General: Appears uncomfortable, Behavior is calm, cooperative. tl4 Historical: - Allergies: 15:25 Epinephrine; hb - PMHx: 15:25 Hypercholesterolemia; Hypertensive disorder; hb - PSHx: 15:25 cardiac stent; hb - Immunization history:: Adult Immunizations up to date. - Social history:: Smoking status: Patient denies any tobacco usage or history of. - Family history:: not pertinent. Screenin:42 [facility] ED Fall Risk Assessment (Adult) History of falling in the last 3 months, tl4 including since admission No falls in past 3 months (0 pts) Confusion or Disorientation No (0 pts) Intoxicated or Sedated No (0 pts) Impaired Gait No (0 pts) Mobility Assist Device Used No (0 pt) Altered Elimination No (0 pt) Score/Fall Risk Level 0 - 2 = Low Risk Oriented to surroundings, Maintained a safe environment, Assessed \T\ reinforced patient's understanding of fall precautions, Provided non-skid footwear, Hourly rounding (assess needs \T\ fall precautionary measures) done, Used ambulatory aids as needed (educated on \T\ assisted with), Used gait belt as appropriate. Abuse screen: Denies threats or abuse. Denies injuries from another. Nutritional screening: No deficits noted. Tuberculosis screening: No symptoms or risk factors identified. Assessment: 16:42 Reassessment: No changes from previously documented assessment. Patient and/or family tl4 updated on plan of care and expected duration. Pain level reassessed. Patient is alert, oriented x 3, equal unlabored respirations, skin warm/dry/pink. Pain: Denies pain. Vital Signs: 15:26 BP 151 / 98; Pulse 89; Resp 16; Temp 98.2; Pulse Ox 100% on R/A; Weight 90.72 kg; hb Height 6 ft. 0 in. ; Pain 1/10; 17:12 BP 147 / 97; Pulse 68; Resp 16; Pulse Ox 99% on R/A; Pain 0/10; tl4 18:21 BP 141 / 95; Pulse 69; Resp 15; Pulse Ox 97% on R/A; Pain 0/10; tl4 15:26 Body Mass Index 27.12 (90.72 kg, 182.88 cm) hb 15:26 Pain Scale: Adult hb 17:12 Pain Scale: Adult tl4 18:21 Pain Scale: Adult tl4 ED Course: 15:10 Patient arrived in ED. rg4 15:23 Frankie Deleon MD is Attending Physician. rt 15:25 Arm band placed on. hb 15:48 LogdahlWilberto is Primary Nurse. tl4 16:00 Inserted saline lock: 20 gauge in left antecubital area, using aseptic technique. Blood tl4 collected. 16:12 CBC with Diff Sent. tl4 16:12 CMP Sent. tl4 16:12 Lactate w/ 2H reflex if indic. Sent. tl4 16:12 Protime (+inr) Sent. tl4 16:12 Ptt, Activated Sent. tl4 16:16 Triage completed. iw 16:40 Blood Culture Adult (2) Sent. tl4 16:41 Patient has correct armband on for positive identification. Bed in low position. Call tl4 light in reach. Side rails up X2. Provided Education on: . 16:41 No provider procedures requiring assistance completed. tl4 18:21 IV discontinued, intact, bleeding controlled, No redness/swelling at site. Pressure tl4 dressing applied. Administered Medications: 16:10 Drug: MethylPrednisoLONE IVP 125 mg IVP once Route: IVP; Site: left antecubital; tl4 16:47 Follow up: Response: No adverse reaction tl4 16:15 Drug: Rocephin IV 2 grams IV at calculated rate once; Given slow IV push per pharmarcy tl4 instructions Route: IV; Rate: calculated rate; Infused Over: 15 mins; Site: left antecubital; 16:20 Follow up: Response: No adverse reaction; IV Status: Completed infusion tl4 Medication: 16:43 VIS not applicable for this client. tl4 Outcome: 18:06 Discharge ordered by MD. rt 18:21 Discharged to home ambulatory, tl4 18:21 Condition: stable 18:21 Discharge instructions given to patient, Instructed on discharge instructions, follow up and referral plans. medication usage, 18:23 Patient left the ED. tl4 Signatures: Lenore Hart RN RN Kelly Angeles RN RN hb Garcia, Tresa rg4 Frankie Deleon MD MD rt Logdaabdirizak, Wilberto tl4 Corrections: (The following items were deleted from the chart) 15:25 15:23 Chief complaint: Painful, itchy rash on torso and arms x 1 month. Seen in ED on hb 11/18, reports rash worse over last 2 days. hb 15:28 15:26 BP 151 / 98; Pulse 89bpm; Resp 16bpm; Pulse Ox 100% RA; Temp 98.2F; Pain 1/10, hb Adult; hb 16:46 06:10 MethylPrednisoLONE IVP 125 mg IVP in left antecubital tl4 tl4
[2023-10-18 18:39] VITALS: TEMP 98.2
[2023-10-18 18:42] VITALS: BP 141/95; O2SAT 97
--- NOTE | 2023-10-23 17:00 | EKG ---
Test Date: 2023-10-18 Test Time: 16:34:19 Industrial Refrigeration Mechanic: TL MEASUREMENT RESULTS: Intervals: Rate: 64 [place]: 150 QRSD: 94 QT: 426 QTc: 439 [place]: P: 47 NJ: 150 QRS: 38 T: 50 INTERPRETIVE STATEMENTS: Normal sinus rhythm Normal ECG Compared to ECG 12/12/2022 10:54:12 Myocardial infarct finding no longer present Electronically Signed On 10-23-23 16:54:11 TROUBLE CLERK by James Gill
== END 2023-10-18 18:23 | disposition home or self-care (01) ==
LOC: ER 15:09
DX: L30.9 Dermatitis, unspecified (principal)
CPT/HCPCS: 36415; 80053; 83605; 85025; 85610; 85730; 87040; 93005; 96374; 96375; 99284; J0696; J2930

== ENCOUNTER 2023-10-25 13:25 | Emergency (ER) | payer SELFPAY ==
--- NOTE | 2023-10-25 13:50 | EDPHYS ---
Physician Documentation [facility] Name: Kam Sultana Age: 53 yrs Sex: Male : 1970 Arrival Date: 10/25/2023 Time: 13:25 Bed IW1 Private MD: ED Physician Manuel Rollins HPI: 10/25 14:11 This 53 yrs old Male presents to ER via Ambulatory with complaints of Rash. ms3 14:11 53-year-old male with past medical history of hyperlipidemia, hypertension [place] [facility] for rash on his right hand, wrist, forearm for 1-1/2 months. Patient states he has been on 2 rounds of antibiotics and steroids. Patient states he is currently taking Keflex. Patient states he stopped taking oral steroids 2 days ago and the rash came back. Patient denies pain. Patient denies any alleviating or inciting factors. Historical: - Allergies: 13:41 Epinephrine; ll1 - PMHx: 13:41 Hypercholesterolemia; Hypertensive disorder; ll1 - PSHx: 13:41 cardiac stent; ll1 - Immunization history:: Adult Immunizations up to date. - Social history:: Smoking status: Patient denies any tobacco usage or history of. ROS: 14:11 Constitutional: Negative for fever, and chills. Neck: Negative for injury, pain, and ms3 swelling, Cardiovascular: Negative for chest pain, and palpitations. Respiratory: Negative for shortness of breath, cough, wheezing, and pleuritic chest pain, Abdomen/GI: Negative for abdominal pain, nausea, vomiting, diarrhea, and constipation, 14:11 Skin: Positive for rash, Exam: 14:11 Constitutional: This is a well developed, well nourished patient who is awake, alert, ms3 and in no acute distress. Head/Face: Normocephalic, atraumatic. Chest/axilla: Normal chest wall appearance and motion. Nontender with no deformity. Cardiovascular: Regular rate and rhythm with a normal S1 and S2. No gallops, murmurs, or rubs. Normal PMI, no JVD. No pulse deficits. Respiratory: Lungs have equal breath sounds bilaterally, clear to auscultation and percussion. No rales, rhonchi or wheezes noted. No increased work of breathing, no retractions or nasal flaring. Abdomen/GI: Soft, non-tender, with normal bowel sounds. No distension or tympany. No guarding or rebound. No evidence of tenderness throughout. 14:11 Skin: rash can be described as erythematous, plaque-like, on the Dorsum of right hand, wrist, forearm, Vital Signs: 13:43 BP 154 / 95; Pulse 93; Resp 17; Temp 97.2; Pulse Ox 99% ; ll1 MDM: 13:49 Patient medically screened. ms3 14:11 Differential diagnosis: Eczema versus psoriasis versus dermatitis. Data reviewed: vital ms3 signs, nurses notes, and as a result, I will discharge patient. Counseling: I had a detailed discussion with the patient and/or guardian regarding the historical points, exam findings, and any diagnostic results supporting the discharge/admit diagnosis, the need for outpatient follow up, to return to the emergency department if symptoms worsen or persist or if there are any questions or concerns that arise at home. Special discussion: I discussed with the patient/guardian in detail that at this point there is no indication for admission to the hospital. It is understood, however, that if the symptoms persist or worsen the patient needs to return immediately for re-evaluation. ED course: Patient given prescription for steroid cream. Patient to follow-up with dermatology in 2 to 3 days. Patient understands and agrees to plan. All questions were answered. Return precautions discussed include worsening symptoms, or any other concerns.. Administered Medications: No medications were administered Disposition Summary: 10/25/23 13:49 Discharge Ordered Notes: Location: Home ms3 Condition: Stable ms3 Diagnosis - Dermatitis, unspecified ms3 Discharge Instructions: - Discharge Summary Sheet ll1 - Rash, Adult ms3 Forms: - Work release form ll1 - Medication Reconciliation Form ms3 - Thank You Letter ms3 - Antibiotic Education ms3 - Prescription Opioid Use ms3 - Patient Portal Instructions ms3 - Leadership Thank You Letter ms3 Prescriptions: - Triamcinolone Acetonide 0.5 % Topical cream - apply 1 application TOPICAL route 2 times per day As needed; 30 gram; Refills: ms3 0, Product Selection Permitted Signatures: Sarah Luque RN RN ll1 Manuel Rollins DO DO ms3
--- NOTE | 2023-10-25 13:50 | ER ---
Nurse's Notes [facility] Name: Kam Sultana Age: 53 yrs Sex: Male : 1970 Arrival Date: 10/25/2023 Time: 13:25 Bed IW1 Private MD: Diagnosis: Dermatitis, unspecified Presentation: 10/25 13:41 Chief complaint: Patient states: Rash to body off on 1.5 months. Ebola Screen: Patient ll1 denies travel to an Ebola-affected area in the 21 days before illness onset. Initial Sepsis Screen: Does the patient meet any 2 criteria? No. Patient's initial sepsis screen is negative. Does the patient have a suspected source of infection? Yes: Skin breakdown/wound. Risk Assessment: Do you want to hurt yourself or someone else? Patient reports no desire to harm self or others. Onset of symptoms was September 10, 2023. 13:41 Method Of Arrival: Ambulatory ll1 13:41 Acuity: CHUY 4 ll1 13:43 Coronavirus screen: Client denies travel out of the [place] in the last 14 days. At this ll1 time, the client does not indicate any symptoms associated with coronavirus-19. Triage Assessment: 13:43 General: Appears uncomfortable, Behavior is calm, cooperative, appropriate for age. ll1 Pain: Denies pain. Derm: Reports rash to body for 1.5 months. Historical: - Allergies: 13:41 Epinephrine; ll1 - PMHx: 13:41 Hypercholesterolemia; Hypertensive disorder; ll1 - PSHx: 13:41 cardiac stent; ll1 - Immunization history:: Adult Immunizations up to date. - Social history:: Smoking status: Patient denies any tobacco usage or history of. Screenin:23 [facility] ED Fall Risk Assessment (Adult) Score/Fall Risk Level 0 - 2 = Low Risk ll1 Oriented to surroundings, Maintained a safe environment, Educated pt \T\ family on fall prevention, incl call for assistance when getting out of bed, Hourly rounding (assess needs \T\ fall precautionary measures) done. Abuse screen: Denies threats or abuse. Nutritional screening: No deficits noted. Tuberculosis screening: No symptoms or risk factors identified. Assessment: 14:22 Reassessment: No changes from previously documented assessment. Patient and/or family ll1 updated on plan of care and expected duration. Pain level reassessed. Vital Signs: 13:43 BP 154 / 95; Pulse 93; Resp 17; Temp 97.2; Pulse Ox 99% ; ll1 ED Course: 13:27 Patient arrived in ED. im 13:28 Manuel Rollins DO is Attending Physician. ms3 13:41 Arm band placed on. ll1 13:42 Triage completed. ll1 14:23 No provider procedures requiring assistance completed. Patient did not have IV access ll1 during this emergency room visit. 14:29 Patient has correct armband on for positive identification. Bed in low position. Call ll1 light in reach. Side rails up X 1. Provided Education on: n/a. Administered Medications: No medications were administered Medication: 14:29 VIS not applicable for this client. ll1 Outcome: 13:49 Discharge ordered by MD. ms3 14:23 Patient left the ED. ll1 14:23 Discharged to home ambulatory, ll1 14:23 Condition: stable 14:23 Discharge instructions given to patient, Instructed on discharge instructions, follow up and referral plans. medication usage, Demonstrated understanding of instructions, follow-up care, medications, Prescriptions given X 1, Signatures: Sarah Luque RN RN ll1 Manuel Rollins DO DO ms3 Sharon Pearson im Corrections: (The following items were deleted from the chart) 13:44 13:43 Pulse 93bpm; Resp 17bpm; Pulse Ox 99%; Temp 97.2F; ll1 ll1
[2023-10-25 14:27] VITALS: BP 154/95; TEMP 97.2; O2SAT 99
== END 2023-10-25 14:23 | disposition home or self-care (01) ==
LOC: ER 13:25
DX: L30.9 Dermatitis, unspecified (principal)
CPT/HCPCS: 99283

== ENCOUNTER → 2023-12-06 | Emergency (ER) | payer SELFPAY ==
--- NOTE | 2023-12-06 07:37 | EDPHYS ---
Physician Documentation [facility] Name: Kam Sultana Age: 53 yrs Sex: Male : 1970 Arrival Date: 12/06/2023 Time: 07:00 Bed 14 Private MD: ED Physician Duarte Oliver HPI: 12/06 07:32 This 53 yrs old Male presents to ER via Ambulatory with complaints of Sore Throat, rn Difficulty Swallowing. 07:32 The patient presents with sore throat. The patient describes throat pain as raw. Onset: rn The symptoms/episode began/occurred 3 day(s) ago. Severity of symptoms: At their worst the symptoms were moderate. Modifying factors: The symptoms are alleviated by nothing, Patient's oral intake status: good. Associated signs and symptoms: Pertinent positives: rhinorrhea, Sore throat Pertinent negatives fever. The patient has not experienced similar symptoms in the past. The patient has not recently seen a physician. Patient reports 3 days of sore throat and postnasal drip. No fever. No shortness of breath. Does smoke and vape. Reports recently on steroids for skin condition. Reports taking [id number] medication and no sick contacts.. Historical: - Allergies: 07:08 Epinephrine; ld1 - PMHx: 07:08 Hypercholesterolemia; Hypertensive disorder; ld1 - PSHx: 07:08 cardiac stent; ld1 - Immunization history:: Adult Immunizations up to date. - Social history:: Smoking status: Patient reports the use of cigarette tobacco products, smokes one pack cigarettes per day. - Family history:: not pertinent. - Hospitalizations: : No recent hospitalization is reported. ROS: 07:32 Constitutional: Negative for fever, chills, and weight loss, ENT: Positive for sore rn throat and postnasal drip Neck: Negative for injury, pain, and swelling, Cardiovascular: Negative for chest pain, palpitations, and edema, Respiratory: Negative for shortness of breath, cough, wheezing, and pleuritic chest pain, Abdomen/GI: Negative for abdominal pain, nausea, vomiting, diarrhea, and constipation, Exam: 07:32 Constitutional: This is a well developed, well nourished patient who is awake, alert, rn and in no acute distress. Head/Face: Normocephalic, atraumatic. ENT: No nasal drainage. Erythematous pharynx without evidence of peritonsillar abscess or stridor. Uvula midline. Neck: Tender bilateral cervical lymphadenopathy without asymmetry or significant mass. Neck supple with full extension and flexion of neck without pain. No meningismus. Cardiovascular: Tachycardic, regular. Respiratory: Speaking full sentences, unlabored. Vital Signs: 07:14 BP 153 / 104; Pulse 114; Resp 18; Temp 98.4; Pulse Ox 96% on R/A; Weight 106.59 kg; ll1 Height 5 ft. 11 in. ; Pain 9/10; 07:47 BP 147 / 98; Pulse 106; Resp 18; Pulse Ox 96% on R/A; db 07:14 Body Mass Index 32.78 (106.59 kg, 180.34 cm) ll1 07:14 Pain Scale: Adult ll1 MDM: 07:06 Patient medically screened. rn 07:32 Differential diagnosis: group A strep tonsillitis, influenza, laryngitis, pharyngitis, rn tonsillitis, upper respiratory infection, uvulitis, viral syndrome. Data reviewed: vital signs, nurses notes, and as a result, I will discharge patient. Counseling: I had a detailed discussion with the patient and/or guardian regarding the historical points, exam findings, and any diagnostic results supporting the discharge/admit diagnosis, the need for outpatient follow up, to return to the emergency department if symptoms worsen or persist or if there are any questions or concerns that arise at home. Special discussion: I discussed with the patient/guardian in detail that at this point there is no indication for admission to the hospital. It is understood, however, that if the symptoms persist or worsen the patient needs to return immediately for re-evaluation. Based on the history and exam findings, there is no indication for further emergent testing or inpatient evaluation. I discussed with the patient/guardian the need to see the primary care provider for further evaluation of the symptoms. 07:32 Special discussion: Based on the history and exam findings, there is no indication for rn further emergent testing or inpatient evaluation. I discussed with the patient/guardian the need to see the ENT specialist for further evaluation of the symptoms. Administered Medications: No medications were administered Disposition Summary: 12/06/23 07:36 Discharge Ordered Notes: Location: Home rn Problem: new rn Symptoms: are unchanged rn Condition: Stable rn Diagnosis - Acute pharyngitis, unspecified rn Followup: rn - With: Private Physician - When: As needed - Reason: Recheck today's complaints, Re-evaluation by your physician Discharge Instructions: - Discharge Summary Sheet rn - Pharyngitis rn - Sore Throat rn Forms: - Medication Reconciliation Form rn - Thank You Letter rn - Antibiotic family law attorney - Prescription Opioid Use rn - Patient Portal Instructions rn - Leadership Thank You Letter rn Prescriptions: - Augmentin 875-125 mg Oral Tablet - take 1 tablet ORAL route every 12 hours for 10 days; 20 tablet; Refills: 0, rn Product Selection Permitted Signatures: Duarte Oliver MD MD rn Lewis, Lynsay, RN RN ll1 Carmelita Rollins RN RN ld1
--- NOTE | 2023-12-06 07:37 | ER ---
Nurse's Notes [facility] Name: Kam Sultana Age: 53 yrs Sex: Male : 1970 Arrival Date: 12/06/2023 Time: 07:00 Bed 14 Private MD: Diagnosis: Acute pharyngitis, unspecified Presentation: 12/06 07:14 Chief complaint: Patient states: Sore throat and unable to swallow well for 3 days. + ll1 congestion and [place]. No known fever. Denies N/V/D. Coronavirus screen: Client denies travel out of the [place] in the last 14 days. congestion, fatigue, headache, runny nose, sore throat, Client presents with at least one sign or symptom that may indicate coronavirus-19. Standard/surgical mask placed on the client. Ebola Screen: Patient denies travel to an Ebola-affected area in the 21 days before illness onset. Initial Sepsis Screen: Does the patient meet any 2 criteria? HR > 90 bpm. No. Patient's initial sepsis screen is negative. Does the patient have a suspected source of infection? Yes: Other: sore throat. Risk Assessment: Do you want to hurt yourself or someone else? Patient reports no desire to harm self or others. Onset of symptoms was December 04, 2023. 07:14 Method Of Arrival: Ambulatory ll1 07:14 Acuity: CHUY 4 ll1 Historical: - Allergies: 07:08 Epinephrine; ld1 - PMHx: 07:08 Hypercholesterolemia; Hypertensive disorder; ld1 - PSHx: 07:08 cardiac stent; ld1 - Immunization history:: Adult Immunizations up to date. - Social history:: Smoking status: Patient reports the use of cigarette tobacco products, smokes one pack cigarettes per day. - Family history:: not pertinent. - Hospitalizations: : No recent hospitalization is reported. Screenin:47 [facility] ED Fall Risk Assessment (Adult) History of falling in the last 3 months, db including since admission No falls in past 3 months (0 pts) Confusion or Disorientation No (0 pts) Intoxicated or Sedated No (0 pts) Impaired Gait No (0 pts) Mobility Assist Device Used No (0 pt) Altered Elimination No (0 pt) Score/Fall Risk Level 0 - 2 = Low Risk Oriented to surroundings, Maintained a safe environment. Abuse screen: Denies threats or abuse. Denies injuries from another. Nutritional screening: No deficits noted. Tuberculosis screening: No symptoms or risk factors identified. Assessment: 07:47 Reassessment: Patient appears in no apparent distress at this time. Patient and/or db family updated on plan of care and expected duration. Pain level reassessed. Patient is alert, oriented x 3, equal unlabored respirations, skin warm/dry/pink. General: Appears in no apparent distress. comfortable, Behavior is calm, cooperative. Pain: Complains of pain in neck. Neuro: Level of Consciousness is awake, alert, obeys commands, Oriented to person, place, time, situation. Cardiovascular: No deficits noted. Respiratory: No deficits noted. Airway is patent Respiratory effort is even, unlabored, Respiratory pattern is regular, symmetrical, Breath sounds are clear. GI: Abdomen is flat. EENT: Oral mucosa is moist. Throat is clear is pink. Vital Signs: 07:14 BP 153 / 104; Pulse 114; Resp 18; Temp 98.4; Pulse Ox 96% on R/A; Weight 106.59 kg; ll1 Height 5 ft. 11 in. ; Pain 9/10; 07:47 BP 147 / 98; Pulse 106; Resp 18; Pulse Ox 96% on R/A; db 07:14 Body Mass Index 32.78 (106.59 kg, 180.34 cm) ll1 07:14 Pain Scale: Adult ll1 ED Course: 07:06 Patient arrived in ED. gm2 07:06 Duarte Oliver MD is Attending Physician. rn 07:07 Arm band placed on Patient placed in an exam room, on a stretcher. ld1 07:15 Andra Arrington, JEREMY is Primary Nurse. db 07:16 Triage completed. ll1 07:47 Patient has correct armband on for positive identification. Bed in low position. Call db light in reach. Side rails up X 1. Provided Education on: HOME CARE OF SORE THROAT. Pulse ox on. NIBP on. 07:47 No provider procedures requiring assistance completed. Patient did not have IV access db during this emergency room visit. Administered Medications: No medications were administered Medication: 07:47 VIS not applicable for this client. db Outcome: 07:36 Discharge ordered by . rn 07:47 Discharged to home ambulatory, db 07:47 Condition: stable 07:47 Discharge instructions given to patient, Instructed on discharge instructions, follow up and referral plans. Prescriptions given X 1, 07:51 Patient left the ED. db Signatures: Duarte Oliver MD MD rn Lewis, Lynsay RN RN ll1 Carmelita Rollins RN RN ld1 Andra Arrington RN RN db Nga Terrell gm2 Corrections: (The following items were deleted from the chart) 07:37 07:14 Acuity: CHUY 3 ll1 ll1
[2023-12-06 09:03] VITALS: BP 147/98; TEMP 98.4; O2SAT 96
== END ==
LOC: ER 07:00
DX: J02.9 Acute pharyngitis, unspecified (principal)